=== PATIENT | female | born 1980 | race Caucasian/White ===

== ENCOUNTER 2017-01-27 11:03 | Emergency (ER) | payer MEDICAID ==
[~2017-01-27] VITALS: Ht 170.2 cm; Wt 64.0 kg
[2017-01-27 11:04] VITALS: BP 130/78; PULSE 122; RESP 16; TEMP 100; O2SAT 98
[2017-01-27] MEDS ORDERED: ULTR50TA5 PO (11:26)
[2017-01-27] MEDS ORDERED: PENI500T PO (11:26)
--- NOTE | 2017-01-27 11:27 | PD ---
HPI . Sore throat Chief Complaint: ENT Complaint Time Seen by Provider: 11:17 Travel History International Travel<30 days: No Contact w/Intl Traveler<30days: No Traveled to known affect area: No History of Present Illness HPI Patient presents with a chief complaint of a sore throat. Onset was last night. Pain is exacerbated by swallowing. Pain has been relieved with Tylenol. Pain is currently ranked 10/10. PFSH Past Medical History ?: Not LMP: 3 WEEKS AGO Social History Tobacco Use: No Review of Systems Except as stated in HPI: all other systems reviewed are Neg General / Constitutional: Positive: Fever, Chills Eyes: No: Drainage, Redness HENT: Positive: Sore Throat Hematologic/Lymphatic: Positive: Lymph Node Enlargement Physical Exam Narrative GENERAL: Awake and alert and in no acute distress. SKIN: Warm and dry. HEAD: Atraumatic. Normocephalic. EYES: Pupils equal and round. No conjunctival injection or discharge. ENT: She has erythema and edema of the soft palate. Tonsils are enlarged with positive exudate. NECK: Trachea midline. Bilateral cervical lymphadenopathy. CARDIOVASCULAR: Regular rate and rhythm. RESPIRATORY: No accessory muscle use. MUSCULOSKELETAL: No obvious deformities. No edema. NEUROLOGICAL: Awake and alert. No obvious cranial nerve deficits. Motor grossly within normal limits. Normal speech. PSYCHIATRIC: Appropriate mood and affect; insight and judgment normal. Data Data Last Documented VS Vital Signs Date Time Temp Pulse Resp B/P Pulse Ox O2 Delivery O2 Flow Rate FiO2 01/27/17 11:04 100.0 122 16 130/78 98 MDM Medical Decision Making Medical Screen Exam Complete: Yes Emergency Medical Condition: Yes Differential Diagnosis Differential diagnosis of sore throat includes but is not limited to viral illness, strep throat, mononucleosis, retropharyngeal abscess, peritonsillar abscess Narrative Course Patient presents for the evaluation and treatment of sore throat. On exam, she has exudative pharyngitis. She'll be treated presumptively for strep. Diagnosis Primary Impression: Exudative pharyngitis Patient Instructions: General Instructions, Strep Throat (DC) Med/Other Pt SpecificInfo: Prescription(s) given Scripts Tramadol (Ultram)50 Mg Tab50 Mg PO Q4H PRN (PAIN) #12 TAB Ref 0 Prov:Karen Lema MD 01/27/17 Penicillin V Potassium 500 Mg Sip022 Mg PO Q8H 10 Days Ref 0 Prov:Karen Lema MD 01/27/17 Disposition: 01 DISCHARGE HOME Condition: Stable Karen Lema MD Jan 27, 2017 11:27
== END 2017-01-27 12:00 | disposition home or self-care (01) ==
LOC: NEPD 11:03
DX: J02.9 Acute pharyngitis, unspecified (principal)
CPT/HCPCS: 99284